=== PATIENT | female | born 1955 | race Caucasian/White ===

== ENCOUNTER 2020-07-14 10:34 | Day surgery (SDC) | payer MEDICARE, MEDICAID, SELFPAY ==
--- NOTE | 2020-07-14 11:05 | ANES.PREANE2 ---
Pre-Anesthetic Assessment Pre-Anesthetic Assessment: Height/Weight: Height 1.63 m Preop Diagnosis: dbl Proposed Procedure: Operation Date: 07/14/20 09:30 Proposed Procedures p EGD/colon [id number] Z12.11 K22.70(Not Applicable) - Rafael Jefferson MD s Colonoscopy(Not Applicable) - Rafael Jefferson MD Familial anesthetic complications: None Was Beta Arturo taken within 24 hours: N/A (patient only take metoprolol prn) Social: Social History: Tobacco and No alcohol Comment: smoker Exam: Pre-Anes Outpt Exam: alert, oriented x 3, clear to auscultation bilaterally and regular rate & rhythm Additional Exam Findings (including area of procedure): diminished breath sounds Airway: Cervical ROM: WNL MP: 2 Dentition: Other (edentulous) Pulmonary: Pulmonary: Asthma, COPD (4 l NC) and Sleep apnea (no cpap at night d/t intolerance) Comments: patient states she desats to 50s when she walks to bathroom and HR goes up to 109 CV/HEM: CV/HEM: HTN and PVD (?) Comments: Patient states she doesnt take plavix anymore and oesn't know why she was on it. She says her blood flow in her legs and elsewhere was slow. Now just on aspiring GI: GI: GERD Metabolic: Metabolic: Thyroid (nodules on methimazole) Musc/skel: Musc/skel: Fibromyalgia, Lower Back Pain and RA (has 6 screws in cervical spine) Comments: hx nasal fracture Anesthetic Plan: ASA status: 4 Anesthesia: MAC Other: due to high risk for desaturation will perform procedure in OR w/ POM mask Risk of > 500 ml blood loss (7ml/kg in children): No PFSH Anesthesia PFSH: Social History (Updated 07/05/20 @ 12:03 by STONE Edwards) Smoking and tobacco status: current every day smoker Alcohol intake: never History of recent travel: No Data Anesthesia Cardiac Studies: No Data to Display
[2020-07-14 11:12] VITALS: BMI 20.5
[2020-07-14 11:15] VITALS: BP 182/100; PULSE 91; RESP 22; TEMP 36.8; O2SAT 99
[2020-07-14] MEDS: sodium chloride 0.9% 1,000 ML 30 ML IV (11:24)
--- NOTE | 2020-07-14 11:31 | W.PM.OPSUD ---
Surgery/Procedure H&P Update DATE OF PROCEDURE: July 14, 2020 DATE H&P PERFORMED: 07/05/20 PREOP DIAGNOSIS: dbl PLANNED PROCEDURE: Operation Date: 07/14/20 09:30 Proposed Procedures p EGD/colon [id number] Z12.11 K22.70(Not Applicable) - Rafael Jefferson MD s Colonoscopy(Not Applicable) - Rafael Jefferson MD
--- NOTE | 2020-07-14 12:24 | ANE.PACU2 ---
Inpatient post-anesthesia follow up: Airway intact: Yes Vital signs: Temperature 98.2 F Pulse Rate 91 Respiratory Rate 22 Blood Pressure 182/100 Pulse Oximetry 99 Oxygen Delivery Me thod Nasal Cannula Oxygen Flow Rate 4.0 Fraction of Inspir ed Oxygen Hydration adequate: Yes Nausea and vomiting: No Pain level: 1 Mental status: Baseline
[2020-07-14 12:28] VITALS: BP 179/111; PULSE 98; RESP 16; O2SAT 100
[2020-07-14 12:57] VITALS: BP 93/57; PULSE 101; RESP 18; O2SAT 96
[2020-07-17 05:39] LABS: H. Pylori / CLO Test Negative
== END 2020-07-14 13:20 | disposition home or self-care (01) ==
PROVIDERS: Family Provider Family Medicine; Visit Provider Internal Medicine
PROC: 0DJ08ZZ Inspection of Upper Intestinal Tract, Via Natural or Artificial Opening Endoscopic (ICD-10-PCS; CPT 43235; principal; 2020-07-14 10:45)
PROC: 0DJD8ZZ Inspection of Lower Intestinal Tract, Via Natural or Artificial Opening Endoscopic (ICD-10-PCS; CPT 45378; 2020-07-14 10:45)
DX: Z12.11 Encounter for screening for malignant neoplasm of colon (principal); D12.0 Benign neoplasm of cecum; K29.50 Unspecified chronic gastritis without bleeding; K57.30 Diverticulosis of large intestine without perforation or abscess without bleeding; J44.9 Chronic obstructive pulmonary disease, unspecified; G47.30 Sleep apnea, unspecified; I10 Essential (primary) hypertension; K21.9 Gastro-esophageal reflux disease without esophagitis; M79.7 Fibromyalgia; M06.9 Rheumatoid arthritis, unspecified; F17.210 Nicotine dependence, cigarettes, uncomplicated
CPT/HCPCS: 12345; 43239; 45385; 87077; J2704; J7030